=== PATIENT | female | born 1955 | race Caucasian/White ===

== ENCOUNTER 2017-02-16 23:10 | Emergency (ER) | payer OTHER ==
[~2017-02-16] VITALS: Ht 170.2 cm; Wt 60.8 kg
--- NOTE | 2017-02-16 23:15 | ED CARDIAC/CP/PALPITATIONS ---
History of Present Illness General Chief Complaint: General Adult Stated Complaint: IRREGULAR HEART BEAT Source: patient Exam Limitations: no limitations Vital Signs & Intake/Output Vital Signs & Intake/Output Vital Signs Date Time Temp Pulse Resp B/P Pulse O2 O2 Flow FiO2 Ox Delivery Rate 02/17 0104 98 20 106/55 99 Room Air 02/17 0021 80 16 110/56 98 Nasal 2.0L Cannula 02/16 2330 97.2 175 18 136/86 02/16 2330 97.2 175 18 136/86 98 Nasal Cannula ED Intake and Output 02/17 0000 02/16 1200 Intake Total Output Total Balance Patient 134 lb Weight Allergies Uncoded Allergies: Allergy Other NKA Food Allergies NKA INGREDIENT: NO KNOWN - NO KNOWN DRUG ALLERGY (11/25/10) Med Allergies NKDA Triage Nurses Notes Reviewed? yes Onset: Abrupt Duration: minute(s): Timing: single episode today Quality/Severity: moderate Location: central Radiation: no radiation Activities at Onset: sleep Prior Chest Pain/Card Workup: no prior chest pain Modifying Factors: Improves With: rest. HPI: 62 yo woman h/o recent mitral valve repair 15 days ago, residual pneumothorax and effusion, presents with palpitations. She notes, "I was lying in bed and ... it felt like I had a liberian jumping rasheed in my chest... My heart was going so fast." Mild shortness of breath. No chest pain, fever, cough. Past History Travel History Traveled to [place] past 21 day No Medical History Any Pertinent Medical History? see below for history Cardiovascular: mitral valve disease Surgical History Surgical History: mitral valve repair - january 2017 Psychosocial History What is your primary language Ecuadorean Family History Hx Contributory? No Review of Systems Review of Systems Constitutional: Reports: no symptoms. EENTM: Reports: no symptoms. Respiratory: Reports: no symptoms. Cardiovascular: Reports: no symptoms. GI: Reports: no symptoms. Genitourinary: Reports: no symptoms. Musculoskeletal: Reports: no symptoms. Skin: Reports: no symptoms. Neurological/Psychological: Reports: no symptoms. Hematologic/Endocrine: Reports: no symptoms. Immunologic/Allergic: Reports: no symptoms. All Other Systems: Reviewed and Negative Physical Exam Physical Exam General Appearance: well developed/nourished, mild distress Head: atraumatic, normal appearance Eyes: Bilateral: normal appearance. Ears, Nose, Throat: normal pharynx, normal ENT inspection Neck: normal inspection, supple Respiratory: normal breath sounds, chest non-tender, no respiratory distress Cardiovascular: irregularly irregular, tachycardic Gastrointestinal: normal bowel sounds, soft, non-tender, no organomegaly Back: normal inspection Extremities: normal inspection Neurologic/Psych: no motor/sensory deficits, awake, alert, oriented x 3 Skin: intact, normal color, warm/dry Core Measures ACS in differential dx? No Severe Sepsis Present: No Septic Shock Present: No Progress Differential Diagnosis: AMI, atrial fibrillation, CHF/pulm edema, hyperkalemia, pneumonia, pneumothorax Plan of Care: Orders Procedure Date/time Status EKG 02/17 2332 Active TROPONIN LEVEL 02/16 2315 Complete PARTIAL THROMBOPLASTIN TIME 02/16 2315 Complete PROTHROMBIN TIME 02/16 2315 Complete D-DIMER 02/16 2315 Complete COMPREHENSIVE METABOLIC PANEL 02/16 2315 Complete CBC WITHOUT DIFFERENTIAL 02/16 2315 Complete EKG 02/16 2311 Active Current Medications Sig/Hansa Start time Last Medication Dose Stop Time Status Admin Diltiazem HCl 125 MG Q12H 02/16 2330 AC (Cardizem DRIP) Sodium Chloride 100 ML (Normal Saline 0.9%) Laboratory Tests 02/16/17 2324: Anion Gap 13, Estimated GFR > 60, BUN/Creatinine Ratio 22.9, Glucose 173 H, Calcium 10.0, Total Bilirubin 0.5, AST 58 H, ALT 55 H, Alkaline Phosphatase 65 , Troponin I 0.07, Total Protein 6.7, Albumin 4.1, Globulin 2.6, Albumin/ Globulin Ratio 1.6, PT 12.6 H, INR 1.20 H, APTT 33, D-Dimer 1854 H, CBC w Diff NO MAN DIFF REQ, RBC 3.95 L, MCV 88.7, MCH 29.5, RDW 14.0, MPV 8.4, Gran % 60.5, Lymphocytes % 24.3, Monocytes % 8.6, Eosinophils % 5.9 H, Basophils % 0.7 , Absolute Granulocytes 4.9, Absolute Lymphocytes 2.0, Absolute Monocytes 0.7 H , Absolute Eosinophils 0.5, Absolute Basophils 0.1, PUBS MCHC 33.3 Diagnostic Imaging: Viewed by Me: Radiology Read. Discussed w/RAD: Radiology Read. CXR Impression: small right pleural effusion, right infiltrate. small right pneumothorax Initial ED EKG: atrial fibrillation, rapid ventricular response Repeat EKG: changed (nsr. no acute changes) Comments: PATIENT: GOYO HORNER PRESENT AGE: 62 PATIENT ACCOUNT NO: [id number] : 57 LOCATION: [facility] ORDERING PHYSICIAN: MARY ADKINS MD SERVICE DATE: 02/16/179 EXAM TYPE: RAD - XRY-PORTABLE CHEST XRAY EXAMINATION: CHEST 1 VIEW CLINICAL INFORMATION: Palpitations. COMPARISON: None. TECHNIQUE: An AP view of the chest is provided. FINDINGS: The cardiac silhouette is mildly enlarged. A mitral valvular prosthesis is identified. Intact midline sternal wires are present. The mediastinal and hilar contours are unremarkable. There is a small right pneumothorax without shift of midline structures. There is an infiltrate at the right lung base with a small associated pleural effusion. The osseous structures are unremarkable. IMPRESSION: Small right pneumothorax without shift of midline structures. Right lower lobe infiltrate with small pleural effusion. Recommendation is for a followup chest series to be obtained following treatment and/or resolution of symptoms to assure resolution of this appearance. The aforementioned was communicated to Dr. Adkins at 2348 hours. DICTATED BY: MARITZA RIVERA MD DATE/TIME DICTATED:02/16/172343 HEAD LINEMAN:ERICH DATE/TIME TRANSCRIBED:02/16/172343 CONFIDENTIAL, DO NOT COPY WITHOUT APPROPRIATE AUTHORIZATION. <Electronically signed in Other Vendor System> SIGNED BY: MARITZA RIVERA MD 02/16/17 2352 Departure Departure Disposition: STILL A PATIENT Condition: Stable Clinical Impression Primary Impression: Atrial fibrillation Secondary Impressions: Pleural effusion, Pneumothorax Referrals: PETEY NJ MD Departure Forms: Customer Survey General Discharge Information Comments 02/17/17, 0:35....Pt given dilt 10mg iv x 1... pt spontaneously converted to NSR in 80's. discussed with Dr Rader... consider transfer given complex presentation ( pneumothorax, recent sugery, pleural effusion, possible pneumonia) 02/17/17, 0:45am... discussed with [facility]ist, Dr Thomas who accepts transfer to ED. Pt to be evaluated by CT surgery, cards, and hospitalist upon arrival. Critical Care Note Critical Care Note Critical Care Time: 30-74 min
--- NOTE | 2017-02-16 23:52 | RADIOLOGY REPORT ---
EXAMINATION: CHEST 1 VIEW CLINICAL INFORMATION: Palpitations. COMPARISON: None. TECHNIQUE: An AP view of the chest is provided. FINDINGS: The cardiac silhouette is mildly enlarged. A mitral valvular prosthesis is identified. Intact midline sternal wires are present. The mediastinal and hilar contours are unremarkable. There is a small right pneumothorax without shift of midline structures. There is an infiltrate at the right lung base with a small associated pleural effusion. The osseous structures are unremarkable. IMPRESSION: Small right pneumothorax without shift of midline structures. Right lower lobe infiltrate with small pleural effusion. Recommendation is for a followup chest series to be obtained following treatment and/or resolution of symptoms to assure resolution of this appearance. The aforementioned was communicated to Dr. Adkins at 2348 hours.
[2017-02-16 23:55] LABS: ABSOLUTE BASOPHIL COUNT 0.1 /CUMM (0.0-0.2); ABSOLUTE EOSINOPHIL COUNT 0.5 /CUMM (0.0-0.7); ABSOLUTE GRANULOCYTE CT 4.9 /CUMM (1.4-6.5); ABSOLUTE MONOCYTE COUNT 0.7 /CUMM (0.10-0.60); BASOPHIL % 0.7 % (0.0-2.0); EOSINOPHIL % 5.9 % (0-5); GRANULOCYTE % 60.5 % (42.2-75.2); MEAN CORPUSCULAR HGB 29.5 PG (27.0-31.0); MEAN CORPUSCULAR HGB CONC 33.3 G/DL (33.0-37.0); MEAN CORPUSCULAR VOLUME 88.7 FL (81.0-99.0); MEAN PLATELET VOLUME 8.4 FL (7.4-10.4); PLATELET COUNT 401 /CUMM (130-400); RED BLOOD CELL CT 3.95 /CUMM (4.20-5.40); WHITE BLOOD CELL COUNT 8.1 /CUMM (4.8-10.8)
[2017-02-17 00:09] LABS: PT 12.6 SEC (9.4-12.5); PTT 33 SEC (25-37)
[2017-02-17 01:04] VITALS: BP 106/55
== END 2017-02-17 01:00 | disposition short-term general hospital (02) ==
LOC: ERH 23:10
PROVIDERS: Pediatrics
DX: I48.91 Unspecified atrial fibrillation (principal); J90 Pleural effusion, not elsewhere classified; J93.9 Pneumothorax, unspecified
CPT/HCPCS: 93005; 93010; 96374; 96376; 99291

== ENCOUNTER 2017-03-28 10:02 | Emergency (ER) | payer OTHER ==
[~2017-03-28] VITALS: Ht 170.2 cm; Wt 59.0 kg
[2017-03-28 10:12] VITALS: BP 127/74
[2017-03-28] MEDS ORDERED: ASPIRIN81 M4 PO (10:18)
[2017-03-28] MEDS ORDERED: HYDROMORPHONE HC4 M1 PO (10:19)
[2017-03-28] MEDS ORDERED: LISINOPRIL10 M1 PO (10:19)
[2017-03-28] MEDS ORDERED: METOPROLOL TART25 M1 PO (10:20)
[2017-03-28] MEDS ORDERED: METFORMIN HCL500 M3 PO (10:20)
[2017-03-28] MEDS ORDERED: PRAVACHOL20 M2 PO (10:21)
[2017-03-28] MEDS ORDERED: SENNA PLUS TAB1 EACH PO (10:22)
[2017-03-28] MEDS ORDERED: ALPRAZOLAM1 M2 PO (10:22)
[2017-03-28] MEDS ORDERED: LANTUS SOL100 UNIT/1 SC (10:23)
[2017-03-28] MEDS ORDERED: FOLIC ACID1 M1 PO (10:24)
[2017-03-28] MEDS ORDERED: ACIDOPHILUS1 EACH PO (10:24)
[2017-03-28] MEDS ORDERED: OMEGA-3 ACID ETH1 GM PO (10:24)
[2017-03-28] MEDS ORDERED: MIRALAX17 G1 PO (10:25)
[2017-03-28 10:47] LABS: ABSOLUTE BASOPHIL COUNT 0 /CUMM (0.0-0.2); ABSOLUTE EOSINOPHIL COUNT 0.3 /CUMM (0.0-0.7); ABSOLUTE GRANULOCYTE CT 4.1 /CUMM (1.4-6.5); ABSOLUTE LYMPH COUNT 1.4 /CUMM (1.2-3.4); ABSOLUTE MONOCYTE COUNT 0.6 /CUMM (0.10-0.60); BASOPHIL % 0.7 % (0.0-2.0); EOSINOPHIL % 5.4 % (0-5); GRANULOCYTE % 63.3 % (42.2-75.2); HEMATOCRIT 37.6 % (37-47); MEAN CORPUSCULAR HGB 28.9 PG (27.0-31.0); MEAN CORPUSCULAR HGB CONC 33.4 G/DL (33.0-37.0); MEAN CORPUSCULAR VOLUME 86.4 FL (81.0-99.0); MEAN PLATELET VOLUME 8.4 FL (7.4-10.4); PLATELET COUNT 344 /CUMM (130-400); RBC DISTRIBUTION WIDTH 14.4 % (11.5-14.5); RED BLOOD CELL CT 4.36 /CUMM (4.20-5.40); WHITE BLOOD CELL COUNT 6.4 /CUMM (4.8-10.8)
--- NOTE | 2017-03-28 10:50 | RADIOLOGY REPORT ---
EXAMINATION: XR PORTABLE CHEST CLINICAL INFORMATION: Status post mitral valve repair with recurrent AFib and chest pain. COMPARISON: 02/16/2017 TECHNIQUE: Portable frontal view of the chest was obtained. FINDINGS: Since the previous study there has been clearing of the right-sided pneumothorax as well as right effusion and lower lobe infiltrate. Heart size within the upper limits of normal. Patient status post median sternotomy with presumed mitral valve prosthesis. No infiltrates, effusions or lung masses are seen this time. IMPRESSION: Clearing of previously detected right lower lobe infiltrate, effusion and pneumothorax.
--- NOTE | 2017-03-28 11:03 | ED CARDIAC/CP/PALPITATIONS ---
History of Present Illness General Chief Complaint: General Adult Stated Complaint: ANGELIKA FROM CARDIAC REHAB, ? SVT Source: patient, family, old records Exam Limitations: no limitations Vital Signs & Intake/Output Vital Signs & Intake/Output Vital Signs Date Time Temp Pulse Resp B/P B/P Pulse O2 O2 Flow FiO2 Mean Ox Delivery Rate 03/28 1016 98 Room Air 03/28 1012 80 18 127/74 100 Room Air Allergies Coded Allergies: No Known Allergies (03/28/17) Reconcile Medications Alprazolam 1 MG TABLET 1 TAB PO QPMP PRN SLEEP (Reported) Aspirin (Aspirin*) 81 MG TAB.CHEW 1 TAB PO DAILY HEART HEALTH (Reported) Folic Acid 1 MG TABLET 1 TAB PO DAILY SUPPLEMENT (Reported) Hydromorphone HCl 4 MG TABLET 0.5 TAB PO Q6-PRN PRN PAIN (Reported) Insulin Glargine,Hum.rec.anlog (Lantus Solostar) 100 UNIT/ML (3 ML) INSULN.PEN 10 U SC QPM DIABETES (Reported) Lactobacillus Acidophilus (Acidophilus) 1 EACH CAPSULE 1 CAP PO DAILY GI ( Reported) Lisinopril 10 MG TABLET 1 TAB PO DAILY HEART (Reported) Metformin HCl 500 MG TABLET 1 TAB PO BID DIABETES (Reported) Metoprolol Tartrate 25 MG TABLET 1 TAB PO BID HEART (Reported) [place]-3 Acid Ethyl Esters 1 GRAM CAPSULE 2 CAP PO BID SUPPLEMENT (Reported) Polyethylene Glycol 3350 (Miralax) 17 GRAM POWD.PACK 1 PAC PO DAILY PRN CONSTIPATION (Reported) dissolve in water Pravastatin Sodium (Pravachol) 20 MG TABLET 1 TAB PO DAILY CHOLESTEROL ( Reported) Sennosides/Docusate Sodium (Senna Plus Tablet) 8.6 MG-50 MG TABLET 1 TAB PO DAILY PRN CONSTIPATION (Reported) Core Measure Meds Pre-Hospital aspirin Triage Note: 62 YO FEMALE ANGELIKA FROM [facility] AFTER RADPID RESPONSE. PER EMS, STAFF STATED PT WAS ON THE TREDMILL AND WENT INTO SVT, ON EMS ARRIVAL PT WAS IN NSR AND HAD NO COMPLAINTS. PT ARRIVES TO ER IN NSR AND WITHOUT COMPLAINTS. STATES SHE WAS NERVOUS LAST PM AND FELT LIKE SHE WAS IN SVT BUT CHECKED IT PULSE AND IT WAS OK. HX OF MITRAL VALVE REPAIR IN FEBRUARY, SINCE THEN STATES SHE WAS IN SVT ONE OTHER TIME. STATES WHILE SHE WAS ON THE TREDMIL SHE FELT LIGHTHEADED AND DIZZY. EKG COMPLETED ON ARRIVAL. SKIN WAMR/DRY. HR 80s ON MONITOR. MD TO BEDSIDE FOR EVAL Triage Nurses Notes Reviewed? yes Onset: Just prior to arrival Timing: single episode today Quality/Severity: mild Radiation: no radiation Activities at Onset: activity Prior Chest Pain/Card Workup: cardiac cath, echocardiography Modifying Factors: Improves With: rest. Worsens With: exercise. Nitro Today/Relief: no nitro taken today Aspirin Today: 81 mg x 1, provided at home Associated Symptoms: shortness of breath LMP (ages 10-50): post menopausal : No Patient currently breastfeeds: No HPI: Deny prior to admission patient complains of having palpitations left-sided back pain felt like gas. At cardiac rehabilitation patient was walking on the treadmill staff noticed she developed rapid atrial fibrillation. Currently she denies fever chills nausea vomiting diarrhea abdominal pain chest pain shortness breath headache dysuria rash bleeding. Past History Travel History Traveled to [place] past 21 day No Medical History Any Pertinent Medical History? see below for history Neurological: NONE EENT: NONE Cardiovascular: mitral valve disease Respiratory: NONE Gastrointestinal: NONE Hepatic: NONE Renal: NONE Musculoskeletal: OSTEOPOROSIS Psychiatric: NONE Endocrine: diabetes Blood Disorders: NONE Cancer(s): NONE ENZYME CHEMIST/Reproductive: NONE Surgical History Surgical History: mitral valve repair - january 2017 Psychosocial History What is your primary language German Tobacco Use: Never used Family History Hx Contributory? No Review of Systems Review of Systems Constitutional: Reports: no symptoms. EENTM: Reports: no symptoms. Respiratory: Reports: no symptoms. Cardiovascular: Reports: see HPI, palpitations. GI: Reports: no symptoms. Genitourinary: Reports: no symptoms. Musculoskeletal: Reports: see HPI, back pain. Skin: Reports: no symptoms. Neurological/Psychological: Reports: no symptoms. Hematologic/Endocrine: Reports: no symptoms. Immunologic/Allergic: Reports: no symptoms. All Other Systems: Reviewed and Negative Physical Exam Physical Exam General Appearance: well developed/nourished, alert, awake, anxious, mild distress Head: atraumatic, normal appearance Eyes: Bilateral: normal appearance, PERRL, EOMI. Ears, Nose, Throat: normal pharynx, normal ENT inspection Neck: normal inspection, supple, full range of motion, no midline tenderness Respiratory: normal breath sounds, chest non-tender, no respiratory distress, quiet respiration, lungs clear Cardiovascular: regular rate/rhythm, normal peripheral pulses, norml femoral pulses equa Peripheral Pulses: 4+ carotid (R), 4+ carotid (L) Gastrointestinal: normal bowel sounds, soft, non-tender, no organomegaly Back: normal inspection, normal range of motion, no vertebral tenderness Extremities: normal inspection, normal capillary refill, normal range of motion, no edema Neurologic/Psych: no motor/sensory deficits, awake, alert, oriented x 3, normal gait, normal mood/affect, community development director II-XII nml as tested Reflexes: 2+: bicep (R), bicep (L). Skin: intact, normal color, warm/dry Lymphatic: no anterior cervical chip Core Measures ACS in differential dx? No Severe Sepsis Present: No Septic Shock Present: No Progress Differential Diagnosis: atrial fibrillation, hyperkalemia, hyperthyroid, musculoskeletal pain, pneumonia Plan of Care: Orders Procedure Date/time Status TSH REFLEX 03/28 1018 Complete TROPONIN LEVEL 03/28 1018 Complete MAGNESIUM 03/28 1018 Complete COMPREHENSIVE METABOLIC PANEL 03/28 1018 Complete CBC WITHOUT DIFFERENTIAL 03/28 1018 Complete EKG 03/28 1006 Active Laboratory Tests 03/28/17 1035: Anion Gap 11, Estimated GFR > 60, BUN/Creatinine Ratio 36.7 H, Glucose 126 H, Calcium 9.9, Magnesium 1.8, Total Bilirubin 0.4, AST 17, ALT 35, Alkaline Phosphatase 68, Troponin I < 0.01, Total Protein 7.0, Albumin 4.0, Globulin 3.0, Albumin/Globulin Ratio 1.3, TSH &T3 &Free T4 Intrp 1.670, CBC w Diff NO MAN DIFF REQ, RBC 4.36, MCV 86.4, MCH 28.9, RDW 14.4, MPV 8.4, Gran % 63.3, Lymphocytes % 21.2, Monocytes % 9.4 H, Eosinophils % 5.4 H, Basophils % 0.7, Absolute Granulocytes 4.1, Absolute Lymphocytes 1.4, Absolute Monocytes 0.6, Absolute Eosinophils 0.3, Absolute Basophils 0, PUBS MCHC 33.4 Diagnostic Imaging: Viewed by Me: CT Scan. Discussed w/RAD: CT Scan. CXR Impression: no acute abnormality, no infiltrates, normal size heart Initial ED EKG: normal axis, normal intervals, normal p-waves, normal QRS complex, normal sinus rhythm, no ST T wave changes Prior EKG: unchanged Rhythm Strip: normal sinus rhythm Departure Departure Time of Disposition: 1159 Disposition: HOME OR SELF CARE Condition: Stable Clinical Impression Primary Impression: Paroxysmal atrial fibrillation Referrals: PETEY NJ MD (PCP/Family) JEFFREY CHAVEZ,TEVIN Additional Instructions: Follow up with the recommendations of Dr. Minor. Departure Forms: Customer Survey General Discharge Information Critical Care Note Critical Care Note Critical Care Time: non-applicable
== END 2017-03-28 12:15 ==
LOC: ERH 10:02
PROVIDERS: Emergency Medicine
DX: I48.0 Paroxysmal atrial fibrillation (principal); E11.9 Type 2 diabetes mellitus without complications; Z79.84 Long term (current) use of oral hypoglycemic drugs
CPT/HCPCS: 93005; 93010